=== PATIENT | female | born 2005 | race Caucasian/White ===

== ENCOUNTER 2025-06-23 19:10 | Outpatient (REF) | payer OTHER, SELFPAY ==
--- NOTE | ~2025-06-23 | MR_ITS ---
CLINICAL HISTORY: INSTABILITY + CATCHING MR right knee without gadolinium Comparison: None provided Findings: No fractures. No pathologic bone lesions. No effusion. Cruciate and collateral ligaments are intact. Patellar retinacula and iliotibial band are intact. No tears of the quadriceps, patellar, popliteus, or flexor tendons. The menisci are intact. IMPRESSION: Unremarkable knee MRI. This document has been electronically signed by: Ashlyn Haas MD on 06/23/2025 20:37:26
== END 2025-06-23 19:11 | disposition home or self-care (01) ==
LOC: HO.MRI 19:10
PROVIDERS: Visit Provider Student in an Organized Health Care Education/Training Program
DX: M25.361 Other instability, right knee (principal); M25.561 Pain in right knee
CPT/HCPCS: 73721

== ENCOUNTER → 2025-06-23 19:15 | Outpatient (BNV) | payer OTHER, SELFPAY | PROVIDERS: Visit Provider Radiology Diagnostic Radiology | DX: M25.361 Other instability, right knee (principal) | CPT/HCPCS: 73721 ==